=== PATIENT | male | born 1965 | race Caucasian/White ===

== ENCOUNTER 2016-11-02 14:49 | Emergency (ER) | payer OTHER ==
[2016-11-02 15:07] LABS: EOSINOPHIL (%) 0.9 % (0-5); EOSINOPHIL COUNT 0.1 K/uL (0-0.3); HEMATOCRIT 46.1 % (38.0-50.0); IMMATURE GRANULOCYTE (%) 0.4 % (0.0-0.7); INSTRUMENT ABS NEUTROPHIL CT 5.4 K/uL; LYMPHOCYTE COUNT 2.1 K/uL (1.0-2.8); MCH 31.6 PG (29.0-34.0); MCHC 34.1 G/DL (30.0-36.0); MCV 92.8 FL (86-99); MEAN PLAT.VOLUME 9.7 uM^3 (9.0-12.4); MONOCYTE (%) 7.9 % (3-12); MONOCYTE COUNT 0.7 K/uL (0-0.8); NEUTROPHIL (%) 65.1 % (45-76); NEUTROPHIL COUNT 5.4 K/uL (1.8-6.4); PLATELET COUNT 226 K/uL (156-360); RBC DIS.WIDTH-SD 40.6 % (39-53); RED BLOOD COUNT 4.97 M/uL (4.00-5.50); WHITE BLOOD COUNT 8.2 K/uL (4.1-10.2)
[2016-11-02 15:17] LABS: AMYLASE 53 IU/L (1-118); CHLORIDE 105 mEq/L (99-109); POTASSIUM 3.7 mEq/L (3.7-5.4); SODIUM 138 mEq/L (136-147)
[2016-11-02 15:19] LABS: GLUCOSE 138 mg/dL (70-99)
[2016-11-02 15:20] LABS: ANION GAP 12 MEQ/L (2-14)
[2016-11-02 15:23] LABS: GFR ESTIMATE (CALCULATED) > 59 mL/min/
[2016-11-02 15:24] LABS: UREA NITROGEN (BUN) 13 mg/dL (9-23)
[2016-11-02 15:26] LABS: LIPASE 52 U/L (1.0-51.0)
[2016-11-02 15:42] LABS: SERUM ETHYL ALCOHOL < 10 mg/dL
== END 2016-11-02 17:34 | disposition home or self-care (01) ==
LOC: TRA 14:49
PROVIDERS: Emergency Medicine
PROC: 3E0234Z Introduction of Serum, Toxoid and Vaccine into Muscle, Percutaneous Approach (ICD-10-PCS; principal; 2016-11-02)
DX: S40.212A Abrasion of left shoulder, initial encounter (principal); M54.9 Dorsalgia, unspecified; M79.601 Pain in right arm; R10.817 Generalized abdominal tenderness; V22.4XXA Motorcycle driver injured in collision with two- or three-wheeled motor vehicle in traffic accident, initial encounter; Z23 Encounter for immunization
CPT/HCPCS: 70450; 71260; 72125; 72129; 72132; 74177; 80048; 81003; 82150; 83690; 85025; 86900; 86901; 99281; 99285; G0480; J2405; J3010